=== PATIENT | female | born 1950 | race African-American/Black ===

== ENCOUNTER → 2016-10-16 | Outpatient (CLI) | payer MEDICARE, BC ==
[~2016-10-16] MED LIST: CLOP75TA33 PO; DOXA2TAB2 PO; FAMO20TA8 PO; HYDR-4133 PO
== END | disposition home or self-care (01) ==
LOC: US 10:43
PROVIDERS: ATTEND Specialist
DX: N28.1 Cyst of kidney, acquired (principal); N17.9 Acute kidney failure, unspecified
CPT/HCPCS: 76770

== ENCOUNTER 2021-12-14 20:41 | Emergency (ER) | payer BC, MEDICARE ==
[~2021-12-14] VITALS: Ht 172.7 cm; Wt 90.9 kg
[2021-12-14] MEDS ORDERED: MORPHINE SULFATE 4 MG/ML CPJ (NOT FOR IM USE) IV NR (22:30)
[2021-12-14] MEDS ORDERED: KETOROLAC 15MG/ML VIAL IV ONE (22:30)
[2021-12-14] MEDS ORDERED: LABETALOL 5MG/ML SYR 20 MG/4 ML SYRINGE IV NR (22:31)
[2021-12-14] MEDS ORDERED: LEVOFLOXACIN 750MG PREMIX 150 ML IV NR (23:00)
[2021-12-14] MEDS ORDERED: ENOXAPARIN 100MG/ML SYR SUBCUT NR (23:30)
[2021-12-14 23:34] LABS: BASOPHILS % 0.6 % (0.0-2.0); EOSINOPHILS % 0.3 % (0.0-5.0); HEMATOCRIT. 41.5 % (36.0-48.0); HEMOGLOBIN. 13.6 g/dL (12.0-16.0); LYMPHOCYTES % 8.7 % (20.0-50.0); MEAN CORPUSCULAR HEMOGLOBIN 25.9 pg (28.0-32.0); MEAN CORPUSCULAR VOLUME 78.9 fL (81.0-99.0); MEAN PLATELET VOLUME 9.4 fl (7.4-10.4); MONOCYTES % 6.6 % (2.0-8.0); NEUTROPHILS % 83.8 % (40.0-76.0); PLATELET 148 x1000/uL (130-400); RED BLOOD CELL COUNT 5.25 mill/uL (4.2-5.4); RED CELL DISTRIBUTION WIDTH 15.1 % (11.6-14.6)
[2021-12-14 23:41] LABS: CHLORIDE 102 mEq/L (98-107)
[2021-12-14 23:55] LABS: INR 1.1; PARTIAL THROMBOPLASTIN TIME 29.7 sec (23.4-31.0); PROTHROMBIN TIME 11.5 sec (9.6-11.0)
[2021-12-15] MEDS ORDERED: ENOXAPARIN 100MG/ML SYR SUBCUT NR (00:30)
[2021-12-15 05:00] LABS: CLARITY URINE CLOUDY (CLEAR); COLOR URINE YELLOW (YELLOW); KETONES URINE TRACE (NEGATIVE); LEUKOCYTE ESTERASE URINE 1+ (NEGATIVE); NITRITE URINE POSITIVE (NEGATIVE); OCCULT BLOOD URINE 2+ (NEGATIVE); PROTEIN URINE 2+ (NEGATIVE); SPECIFIC GRAVITY URINE 1.021 (1.005-1.030)
[2021-12-15 08:24] VITALS: BP 150/66
[2021-12-15] MEDS ORDERED: ENOXAPARIN 100MG/ML SYR SUBCUT SCH (11:30)
== END 2021-12-15 09:22 | disposition short-term general hospital (02) ==
LOC: ER 20:51
DX: J18.9 Pneumonia, unspecified organism (principal); I82.4Z1 Acute embolism and thrombosis of unspecified deep veins of right distal lower extremity; I10 Essential (primary) hypertension; Z88.0 Allergy status to penicillin; Z90.710 Acquired absence of both cervix and uterus
CPT/HCPCS: 36415; 71045; 74176; 80053; 81003; 83605; 83690; 83880; 84145; 84484; 85025; 85610; 85730; 87040; 87077; 87086; 87186; 93005; 93970; 96365; 96372; 96375; 99285; J1650; J1885; J1956; J2270; J3490